=== PATIENT | male | born 1960 | race Caucasian/White ===

== ENCOUNTER 2024-11-12 09:33 | Emergency (ER) | payer OTHER ==
[~2024-11-12] VITALS: Ht 167.6 cm; Wt 69.0 kg
[2024-11-12 09:36] VITALS: O2SAT 98
[2024-11-12 10:17] VITALS: TEMP 37.1
[2024-11-12] MEDS: ACETAMINOPHEN 500MG TABLET PO ONE (10:20)
[2024-11-12 11:52] VITALS: BP 143/84; PULSE 75; RESP 16; O2SAT 100
== END 2024-11-12 11:54 | disposition home or self-care (01) ==
LOC: ER 09:33
DX: S00.83XA Contusion of other part of head, initial encounter (principal); S50.312A Abrasion of left elbow, initial encounter; S00.511A Abrasion of lip, initial encounter; F41.9 Anxiety disorder, unspecified; Z98.890 Other specified postprocedural states; Y04.0XXA Assault by unarmed brawl or fight, initial encounter; Y93.89 Activity, other specified; Y92.89 Other specified places as the place of occurrence of the external cause; Y99.8 Other external cause status
CPT/HCPCS: 71045; 73070; 73090; 73100; 99284